=== PATIENT | female | born 1965 | race Caucasian/White ===

== ENCOUNTER 2016-10-08 11:26 | Emergency (ER) | payer OTHER ==
[~2016-10-08 11:26] MED LIST: PERC5TAB6 PO; biotin OR
--- NOTE | 2016-10-08 12:40 | REP ---
Clinical: Trauma. Technique: AP, lateral, bilateral oblique and sunrise views left knee. Findings: The osseous structures and joint spaces are intact and normal. There is no evidence for acute fracture or dislocation. No joint effusion is appreciated. Surrounding soft tissues are unremarkable. No subcutaneous emphysema or radiodense foreign body. Impression: Normal examination. No acute fracture or dislocation. Signed by Michael Ochoa MD 10/08/2016 12:31 P
--- NOTE | 2016-10-08 13:31 | REP ---
Clinical: Pain and swelling . Technique: Trujillo scale and color Doppler evaluation using linear high frequency transducer. Findings: Ultrasound examination of the left lower extremity deep venous structures from the common femoral vein to the popliteal vein demonstrates normal compressibility flow and wave patterns in response to respiration and augmentation. There is no evidence for deep venous thrombosis. 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 Impression: No evidence for deep venous thrombosis. Signed by Michael Ochoa MD 10/08/2016 01:23 P
--- NOTE | 2016-10-08 13:53 | EDDOCDS ---
Physician Documentation [facility] Name: Alisa Wilson Age: 51 yrs Sex: Female : 1965 Arrival Date: 10/08/2016 Time: 11:26 Bed PD Private MD: Amber Hoffman Disposition: 10/08/16 13:43 Discharged to Home/Self Care. Impression: Pain in left knee. - Condition is Stable. - Discharge Instructions: Knee Pain. - Medication Reconciliation, [facility] Followup form. - Follow up: Emergency Department; When: As needed; Reason: Worsening of conditions. Follow up: [facility]; When: Call to arrange an appointment; Reason: Wound/Symptom Recheck, Recheck today's complaints, Worsening of conditions, Continuance of care. - Problem is an ongoing problem. - Symptoms are unchanged. Historical: - Allergies: no known allergies; - Home Meds: 1. none - PMHx: none; - PSHx: Hysterectomy; Oophorectomy- bilateral; Salpingectomy- Bilateral; - Social history: Smoking status: Patient states was never smoker of tobacco. No barriers to communication noted, The patient speaks fluent Mongolian. - Family history: Not pertinent. - : The pt / caregiver states he / she is not on anticoagulants. Home medication list is obtained from the patient. - Exposure Risk Screening:: None identified. 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 1 in. (154.94 cm); Pain 6/10; 13:50 BP 145 / 85; Pulse 68; Resp 16; Temp 97.6(TE); Pulse Ox 97% on R/A; Pain 6/10; mlb1 11:29 Body Mass Index 33.82 (81.19 kg, 154.94 cm) sar1 MDM: 11:42 Knee, Complete Ordered. EDMS 12:34 US Lower Extremity R/O DVT: Bakers cyst too? Ordered. EDMS Signatures: Dispatcher [employer] EDMS Jose Hendricks RN RN po Jae Fraser RN RN mlb1 Zion Bianchi, PA-C PA-C cc10 MTDD
--- NOTE | 2016-10-08 13:53 | EDDOCDS ---
Nurse's Notes [facility] Name: Alisa Wilson Age: 51 yrs Sex: Female : 1965 Arrival Date: 10/08/2016 Time: 11:26 Bed PD Private MD: Amber Hoffman Diagnosis: Pain in left knee Presentation: 10/08 11:33 Presenting complaint: Patient states: intermittent in back of left knee x1 1/2 weeks. po Adult Sepsis Screening: The patient does not have new or worsening altered mentation. Patient's respiratory rate is less than 22. Systolic blood pressure is greater than 100. Patient has a qSOFA score of 0- Negative Sepsis Screen. Suicide/Homicide risk assessment- the patient denies having any suicidal and/or homicidal ideations and does not present with any other emotional, behavioral or mental health complaints. 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 Transition of care: patient was not received from another setting of care. 11:33 Acuity: TRAVIS Level 4 po 11:33 Method Of Arrival: Walkin/Carried/Asstd po Triage Assessment: 11:36 General: Appears in no apparent distress, comfortable, Behavior is appropriate for age, po cooperative. Pain: Location: posterior aspect of left knee and left calf Pain currently is 6 out of 10 on a pain scale. Is continuous. HIV screening NA for this visit Offered previously. Neurological: Level of Consciousness is awake, alert, Oriented to person, place, time. Respiratory: Airway is patent Respiratory effort is even, unlabored. Derm: Skin is pink, warm & dry. REIMBURSEMENT REP: 11:36 LMP N/A - Post-menopause po Historical: - Allergies: no known allergies; - Home Meds: 1. none - PMHx: none; - PSHx: Hysterectomy; Oophorectomy- bilateral; Salpingectomy- Bilateral; - Social history: Smoking status: Patient states was never smoker of tobacco. No barriers to communication noted, The patient speaks fluent Tamazight. - Family history: Not pertinent. - : The pt / caregiver states he / she is not on anticoagulants. Home medication list is obtained from the patient. - Exposure Risk Screening:: None identified. Screenin:51 Screening information is obtained from the patient. Fall risk: No risks identified. mlb1 Assistance ADL's: requires no assistance with activities of daily living. Abuse/DV Screen: The patient / caregiver reports he/she is: not in a situation that causes fear, pain or injury. Nutritional screening: No deficits noted. Advance Directives: Currently, there is no health care proxy. home support is adequate. Assessment: 13:50 General: Appears in no apparent distress, comfortable, Behavior is appropriate for age, mlb1 cooperative. Pain: Location: left knee Pain currently is 6 out of 10 on a pain scale. Respiratory: Airway is patent Respiratory effort is even, Breath sounds are clear bilaterally. Derm: No deficits noted. Vital Signs: 11:29 BP 167 / 95; Pulse 76; Resp 18; Temp 97.6(O); Pulse Ox 99% on R/A; Weight 81.19 kg (R); sar1 Height 5 ft. 1 in. (154.94 cm); Pain 6/10; 13:50 BP 145 / 85; Pulse 68; Resp 16; Temp 97.6(TE); Pulse Ox 97% on R/A; Pain 6/10; mlb1 11:29 Body Mass Index 33.82 (81.19 kg, 154.94 cm) [facility] [place] Vitals: 11:29 Log In Time: October 08, 2016 at 11:29. [facility] ED Course: 11:28 Patient visited by Sharmaine Brock, Beef Cattle Farmer. sar1 11:28 Amber Hoffman FNP is Private Physician. sar1 11:28 Patient moved to Waiting sar1 11:31 Patient moved to Pre RCE sar1 11:35 Triage Initiated po 11:36 Arm band placed on right wrist. Patient placed in waiting room. po 11:37 Patient visited by Jose Hendricks RN. po 12:22 Patient moved to Triage 3 ms18 12:24 Zion Bianchi PA-C [facility]. cc10 12:24 Tamara Alberto MD is Attending Physician. cc10 12:24 Patient visited by Zion Bianchi PA-C. cc10 12:24 Patient visited by Zion Bianchi PA-C. cc10 12:43 Knee, Complete Returned. EDMS 13:00 Patient moved to TR1 rn1 13:37 Lower Extremity R/O DVT: Bakers cyst too? Returned. EDMS 13:39 Patient moved to PD2 / mlb1 13:43 [facility] is Referral Physician. cc10 13:51 The patient / caregiver is instructed regarding the plan of care and ED course. mlb1 13:51 No IV's were initiated during this patient's visit. No procedures done that require mlb1 assistance. 13:52 Patient visited by Jae Fraser RN. mlb1 Order Results: Radiology Order: Knee, Complete Test: Knee, Complete REASON FOR EXAMINATION: Trauma; Clinical: Trauma.; ; Technique: AP, lateral, bilateral oblique and sunrise views left knee.; ; Findings: The osseous structures and joint spaces are intact and normal. There; is no evidence for acute fracture or dislocation. No joint effusion is; appreciated. Surrounding soft tissues are unremarkable. No subcutaneous; emphysema or radiodense foreign body.; ; Impression:; Normal examination. No acute fracture or dislocation.; ; ; Signed by; Michael Ochoa MD 10/08/2016 12:31 P; Radiology Order: US Lower Extremity R/O DVT: Bakers cyst too? Test: US Lower Extremity R/O DVT: Bakers cyst too? REASON FOR EXAMINATION: Deformity/Swelling; Clinical: Pain and swelling .; ; Technique: Trujillo scale and color Doppler evaluation using linear high frequency; transducer.; ; Findings:; Ultrasound examination of the left lower extremity deep venous structures from; the common femoral vein to the popliteal vein demonstrates normal compressibility; flow and wave patterns in response to respiration and augmentation. There is no; evidence for deep venous thrombosis. 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 cc10 13:51 Discharge Assessment: Patient awake, alert and oriented x 3. No cognitive and/or mlb1 functional deficits noted. Patient verbalized understanding of disposition instructions. patient administered narcotics - no. The following High Risk Discharge criteria are identified: None. Discharged to home ambulatory. 13:52 Condition: good. Discharge instructions given to patient, Instructed on discharge mlb1 instructions, follow up and referral plans. Demonstrated understanding of instructions, Pt was receptive of discharge instructions/ teaching. Ultrasound Study completed. Property sent home with patient. 13:52 Patient left the ED. mlb1 Signatures: Dispatcher [employer] Jose Buenrostro,RN RN po Evelio, Jae Mendoza RN RN mlb1 Zion Bianchi, PADylanC PA-C cc10 Andreea Bell RN RN ms18 Sharmaine Brock, Beef Cattle Farmer Unit sar1 Antoine Rojas rn1 MTDD
--- NOTE | 2016-10-10 14:53 | EDDOCDS ---
Physician Documentation [facility] Name: Alisa Wilson Age: 51 yrs Sex: Female : 1965 Arrival Date: 10/08/2016 Time: 11:26 Bed PD Private MD: Amber Hoffman Disposition: 10/08/16 13:43 Discharged to Home/Self Care. Impression: Pain in left knee. - Condition is Stable. - Discharge Instructions: Knee Pain. - Medication Reconciliation, [facility] Followup form. - Follow up: Emergency Department; When: As needed; Reason: Worsening of conditions. Follow up: [facility]; When: Call to arrange an appointment; Reason: Wound/Symptom Recheck, Recheck today's complaints, Worsening of conditions, Continuance of care. - Problem is an ongoing problem. - Symptoms are unchanged. Historical: - Allergies: no known allergies; - Home Meds: 1. none - PMHx: none; - PSHx: Hysterectomy; Oophorectomy- bilateral; Salpingectomy- Bilateral; - Social history: Smoking status: Patient states was never smoker of tobacco. No barriers to communication noted, The patient speaks fluent Czech. - Family history: Not pertinent. - : The pt / caregiver states he / she is not on anticoagulants. Home medication list is obtained from the patient. - Exposure Risk Screening:: None identified. 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 1 in. (154.94 cm); Pain 6/10; 13:50 BP 145 / 85; Pulse 68; Resp 16; Temp 97.6(TE); Pulse Ox 97% on R/A; Pain 6/10; mlb1 11:29 Body Mass Index 33.82 (81.19 kg, 154.94 cm) sar1 MDM: 11:42 Knee, Complete Ordered. EDMS 12:34 US Lower Extremity R/O DVT: Bakers cyst too? Ordered. EDMS 15:10 [facility] Payment Agreement was scanned into [employer] and attached to record. jp5 15:10 Financial registration complete. jp5 16:59 T-Sheet-- Draft Copy was scanned into [employer] and attached to record. klr Signatures: Dispatcher [employer] Jose Buenrostro RN RN po Barney, Michael B, RN RN mlb1 Zion Bianchi PA-C PADylanC cc10 Tatiana Rdz jp5 Sheila Key klr The chart was reviewed and I authenticate all verbal orders and agree with the evaluation and treatment provided.Attachments: 15:10 [facility] Payment Agreement jp5 16:59 T-Sheet-- Draft Copy klr Chart Complete MTDD
--- NOTE | 2016-10-10 14:53 | EDDOCDS ---
Nurse's Notes [facility] Name: Alisa Wilson Age: 51 yrs Sex: Female : 1965 Arrival Date: 10/08/2016 Time: 11:26 Bed PD Private MD: Amber Hoffman Diagnosis: Pain in left knee Presentation: 10/08 11:33 Presenting complaint: Patient states: intermittent in back of left knee x1 1/2 weeks. po Adult Sepsis Screening: The patient does not have new or worsening altered mentation. Patient's respiratory rate is less than 22. Systolic blood pressure is greater than 100. Patient has a qSOFA score of 0- Negative Sepsis Screen. Suicide/Homicide risk assessment- the patient denies having any suicidal and/or homicidal ideations and does not present with any other emotional, behavioral or mental health complaints. Status: Patient is not a career services director or dependent. Transition of care: patient was not received from another setting of care. 11:33 Acuity: TRAVIS Level 4 po 11:33 Method Of Arrival: Walkin/Carried/Asstd po Triage Assessment: 11:36 General: Appears in no apparent distress, comfortable, Behavior is appropriate for age, po cooperative. Pain: Location: posterior aspect of left knee and left calf Pain currently is 6 out of 10 on a pain scale. Is continuous. HIV screening NA for this visit Offered previously. Neurological: Level of Consciousness is awake, alert, Oriented to person, place, time. Respiratory: Airway is patent Respiratory effort is even, unlabored. Derm: Skin is pink, warm & dry. 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 none - PMHx: none; - PSHx: Hysterectomy; Oophorectomy- bilateral; Salpingectomy- Bilateral; - Social history: Smoking status: Patient states was never smoker of tobacco. No barriers to communication noted, The patient speaks fluent French. - Family history: Not pertinent. - : The pt / caregiver states he / she is not on anticoagulants. Home medication list is obtained from the patient. - Exposure Risk Screening:: None identified. Screenin:51 Screening information is obtained from the patient. Fall risk: No risks identified. mlb1 Assistance ADL's: requires no assistance with activities of daily living. Abuse/DV Screen: The patient / caregiver reports he/she is: not in a situation that causes fear, pain or injury. Nutritional screening: No deficits noted. Advance Directives: Currently, there is no health care proxy. home support is adequate. Assessment: 13:50 General: Appears in no apparent distress, comfortable, Behavior is appropriate for age, mlb1 cooperative. Pain: Location: left knee Pain currently is 6 out of 10 on a pain scale. Respiratory: Airway is patent Respiratory effort is even, Breath sounds are clear bilaterally. Derm: No deficits noted. Vital Signs: 11:29 BP 167 / 95; Pulse 76; Resp 18; Temp 97.6(O); Pulse Ox 99% on R/A; Weight 81.19 kg (R); sar1 Height 5 ft. 1 in. (154.94 cm); Pain 6/10; 13:50 BP 145 / 85; Pulse 68; Resp 16; Temp 97.6(TE); Pulse Ox 97% on R/A; Pain 6/10; mlb1 11:29 Body Mass Index 33.82 (81.19 kg, 154.94 cm) [facility] Vitals: 11:29 Log In Time: October 08, 2016 at 11:29. [facility] ED Course: 11:28 Patient visited by Sharmaine Brock, Quarry Supervisor Open Pit. sar1 11:28 Amber Hoffman FNP is Private Physician. sar1 11:28 Patient moved to Waiting sar1 11:31 Patient moved to Pre RCE sar1 11:35 Triage Initiated po 11:36 Arm band placed on right wrist. Patient placed in waiting room. po 11:37 Patient visited by Jose Hendricks RN. po 12:22 Patient moved to Triage 3 ms18 12:24 Zion Bianchi PA-C [facility]. cc10 12:24 Tamara Alberto MD is Attending Physician. cc10 12:24 Patient visited by Zion Bianchi PA-C. cc10 12:24 Patient visited by Zion Bianchi PA-C. cc10 12:43 Knee, Complete Returned. EDMS 13:00 Patient moved to TR1 rn1 13:37 Lower Extremity R/O DVT: Bakers cyst too? Returned. EDMS 13:39 Patient moved to PD2 / mlb1 13:43 [facility] is Referral Physician. cc10 13:51 The patient / caregiver is instructed regarding the plan of care and ED course. mlb1 13:51 No IV's were initiated during this patient's visit. No procedures done that require mlb1 assistance. 13:52 Patient visited by Jae Fraser RN. mlb1 15:10 [facility] Payment Agreement was scanned into [email or web address] and attached to record. jp5 16:59 T-Sheet-- Draft Copy was scanned into [email or web address] and attached to record. klr Order Results: Radiology Order: Knee, Complete Test: Knee, Complete REASON FOR EXAMINATION: Trauma; Clinical: Trauma.; ; Technique: AP, lateral, bilateral oblique and sunrise views left knee.; ; Findings: The osseous structures and joint spaces are intact and normal. There; is no evidence for acute fracture or dislocation. No joint effusion is; appreciated. Surrounding soft tissues are unremarkable. No subcutaneous; emphysema or radiodense foreign body.; ; Impression:; Normal examination. No acute fracture or dislocation.; ; ; Signed by; Michael Ochoa MD 10/08/2016 12:31 P; Radiology Order: US Lower Extremity R/O DVT: Bakers cyst too? Test: US Lower Extremity R/O DVT: Bakers cyst too? REASON FOR EXAMINATION: Deformity/Swelling; Clinical: Pain and swelling .; ; Technique: Trujillo scale and color Doppler evaluation using linear high frequency; transducer.; ; Findings:; Ultrasound examination of the left lower extremity deep venous structures from; the common femoral vein to the popliteal vein demonstrates normal compressibility; flow and wave patterns in response to respiration and augmentation. There is no; evidence for deep venous thrombosis. 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 cc10 13:51 Discharge Assessment: Patient awake, alert and oriented x 3. No cognitive and/or mlb1 functional deficits noted. Patient verbalized understanding of disposition instructions. patient administered narcotics - no. The following High Risk Discharge criteria are identified: None. Discharged to home ambulatory. 13:52 Condition: good. Discharge instructions given to patient, Instructed on discharge mlb1 instructions, follow up and referral plans. Demonstrated understanding of instructions, Pt was receptive of discharge instructions/ teaching. Ultrasound Study completed. Property sent home with patient. 13:52 Patient left the ED. mlb1 Signatures: Dispatcher [employer] EDMS Jose Hendricks,RN RN Jae Lozano RN RN mlb1 Zion Bianchi, PA-C PAJovan cc10 Andreea Bell RN RN ms18 Sharmaine Brock, Quarry Supervisor Open Pit Unit sar1 Antoine Rojas rn1 Tatiana Rdz jp5 Sheila Key Chart Complete MTDD
--- NOTE | 2016-10-10 14:53 | EDDOCDS ---
Physician Documentation [facility] Name: Alisa Wilson Age: 51 yrs Sex: Female : 1965 Arrival Date: 10/08/2016 Time: 11:26 Bed PD Private MD: Amber Hoffman Disposition: 10/08/16 13:43 Discharged to Home/Self Care. Impression: Pain in left knee. - Condition is Stable. - Discharge Instructions: Knee Pain. - Medication Reconciliation, [facility] Followup form. - Follow up: Emergency Department; When: As needed; Reason: Worsening of conditions. Follow up: [facility]; When: Call to arrange an appointment; Reason: Wound/Symptom Recheck, Recheck today's complaints, Worsening of conditions, Continuance of care. - Problem is an ongoing problem. - Symptoms are unchanged. Historical: - Allergies: no known allergies; - Home Meds: 1. none - PMHx: none; - PSHx: Hysterectomy; Oophorectomy- bilateral; Salpingectomy- Bilateral; - Social history: Smoking status: Patient states was never smoker of tobacco. No barriers to communication noted, The patient speaks fluent Yoruba. - Family history: Not pertinent. - : The pt / caregiver states he / she is not on anticoagulants. Home medication list is obtained from the patient. - Exposure Risk Screening:: None identified. 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 1 in. (154.94 cm); Pain 6/10; 13:50 BP 145 / 85; Pulse 68; Resp 16; Temp 97.6(TE); Pulse Ox 97% on R/A; Pain 6/10; mlb1 11:29 Body Mass Index 33.82 (81.19 kg, 154.94 cm) sar1 MDM: 11:42 Knee, Complete Ordered. EDMS 12:34 US Lower Extremity R/O DVT: Bakers cyst too? Ordered. EDMS 15:10 [facility] Payment Agreement was scanned into [employer] and attached to record. jp5 15:10 Financial registration complete. jp5 16:59 T-Sheet-- Draft Copy was scanned into [employer] and attached to record. klr Signatures: Dispatcher [employer] Jose Buenrostro RN RN po Barney, Michael B, RN RN mlb1 Zion Bianchi PA-C PADylanC cc10 Tatiana Rdz jp5 Sheila Key klr The chart was reviewed and I authenticate all verbal orders and agree with the evaluation and treatment provided.Attachments: 15:10 [facility] Payment Agreement jp5 16:59 T-Sheet-- Draft Copy klr Chart Complete MTDD
== END 2016-10-08 13:52 | disposition home or self-care (01) ==
LOC: M ED 11:26
DX: M25.562 Pain in left knee (principal)

== ENCOUNTER → 2017-04-23 | Outpatient (REF) | payer OTHER ==
[~2017-04-23] MED LIST changes: +PERC5TAB12 PO; -PERC5TAB6 PO
[2017-04-23 12:14] LABS: ALBUMIN/GLOBULIN RATIO 1.03 (1.00-1.93); ALKALINE PHOSPHATASE 60 U/L (45-117); ALT/SGPT 44 U/L (12-78); ANION GAP 6 MEQ/L (8-16); AST/SGOT 32 U/L (15-37); BILIRUBIN,TOTAL 0.3 MG/DL (0.2-1.0); BLOOD UREA NITROGEN 8 MG/DL (7-18); CALCIUM LEVEL 9.4 MG/DL (8.5-10.1); CARBON DIOXIDE LEVEL 27 MEQ/L (21-32); CHLORIDE LEVEL 108 MEQ/L (98-107); CHOLESTEROL LEVEL 287 MG/DL (<200); CREATININE FOR GFR 0.66 MG/DL (0.55-1.02); GLOMERULAR FILTRATION RATE > 60.0 (>51); GLUCOSE, FASTING 90 MG/DL (70-105); SODIUM LEVEL 141 MEQ/L (136-145); TOTAL PROTEIN 7.9 GM/DL (6.4-8.2); TRIGLYCERIDES LEVEL 377 MG/DL (<150)
== END ==
LOC: M SFHCPLAZ 10:03
PROVIDERS: ATTEND Nurse Practitioner Family
DX: E78.2 Mixed hyperlipidemia (principal); E55.9 Vitamin D deficiency, unspecified

== ENCOUNTER → 2017-07-16 | Outpatient (REF) | payer OTHER ==
[2017-07-16 12:37] LABS: MEAN CORPUSCULAR HEMOGLOBIN 27.4 pg (27.0-33.0); MEAN CORPUSCULAR HGB CONC 31.8 g/dl (32.0-36.5); MEAN CORPUSCULAR VOLUME 86.2 fl (80.0-96.0); RED CELL DISTRIBUTION WIDTH 13.9 % (11.5-14.5); WHITE BLOOD COUNT 7.8 10^3/uL (4.0-10.0)
[2017-07-16 12:56] LABS: ALBUMIN 3.9 GM/DL (3.2-5.2); ALBUMIN/GLOBULIN RATIO 1.05 (1.00-1.93); ALKALINE PHOSPHATASE 59 U/L (45-117); ALT/SGPT 44 U/L (12-78); ANION GAP 9 MEQ/L (8-16); AST/SGOT 29 U/L (15-37); BILIRUBIN,TOTAL 0.3 MG/DL (0.2-1.0); BLOOD UREA NITROGEN 15 MG/DL (7-18); CARBON DIOXIDE LEVEL 27 MEQ/L (21-32); CHLORIDE LEVEL 102 MEQ/L (98-107); CREATININE FOR GFR 0.63 MG/DL (0.55-1.02); FERRITIN 37 NG/ML (8-252); GLOMERULAR FILTRATION RATE > 60.0 (>51); GLUCOSE, FASTING 84 MG/DL (70-105); POTASSIUM SERUM 4.5 MEQ/L (3.5-5.1); SODIUM LEVEL 138 MEQ/L (136-145); TOTAL PROTEIN 7.6 GM/DL (6.4-8.2)
== END ==
LOC: M SFHCPLAZ 10:13
PROVIDERS: ATTEND Nurse Practitioner Family
DX: E55.9 Vitamin D deficiency, unspecified (principal); D50.9 Iron deficiency anemia, unspecified; E78.2 Mixed hyperlipidemia; Z13.89 Encounter for screening for other disorder

== ENCOUNTER → 2017-09-05 | Outpatient (REF) | payer OTHER | LOC: M LAB REF 12:10 → M SFHCPLAZ 12:10 → M LAB REF 09-06 12:09 | PROVIDERS: ATTEND Nurse Practitioner Family | DX: J02.9 Acute pharyngitis, unspecified (principal); R35.0 Frequency of micturition ==

== ENCOUNTER → 2017-09-06 | Outpatient (REF) | payer OTHER ==
[2017-09-06 16:17] LABS: BASO # 0.1 10^3/uL (0.0-0.2); BASO % 0.7 % (0.0-1.0); EOS # 0.2 10^3/uL (0.0-0.50); EOS % 2.4 % (0.0-3.0); IMMATURE GRANULOCYTE % 0.3 % (0-0); LYMPH # 2.1 10^3/uL (1.5-4.5); LYMPH % 28.4 % (24.0-44.0); MEAN CORPUSCULAR HEMOGLOBIN 27.4 pg (27.0-33.0); MEAN CORPUSCULAR HGB CONC 32.5 g/dl (32.0-36.5); MEAN CORPUSCULAR VOLUME 84.5 fl (80.0-96.0); MONO # 0.7 10^3/uL (0.0-0.8); MONO % 8.8 % (0.0-5.0); NEUTROPHILS # 4.4 10^3/uL (1.8-7.7); NEUTROPHILS % 59.4 % (36.0-66.0); PLATELET COUNT, AUTOMATED 383 10^3/uL (150-450); RED CELL DISTRIBUTION WIDTH 13.5 % (11.5-14.5); WHITE BLOOD COUNT 7.5 10^3/uL (4.0-10.0)
[2017-09-06 16:48] LABS: ALBUMIN 3.9 GM/DL (3.2-5.2); ALBUMIN/GLOBULIN RATIO 1.11 (1.00-1.93); ALKALINE PHOSPHATASE 69 U/L (45-117); ALT/SGPT 25 U/L (12-78); AMYLASE 60 U/L (25-115); ANION GAP 6 MEQ/L (8-16); AST/SGOT 20 U/L (7-37); BILIRUBIN,TOTAL 0.3 MG/DL (0.2-1.0); BLOOD UREA NITROGEN 11 MG/DL (7-18); CALCIUM LEVEL 8.9 MG/DL (8.5-10.1); CARBON DIOXIDE LEVEL 28 MEQ/L (21-32); CHLORIDE LEVEL 108 MEQ/L (98-107); CREATININE FOR GFR 0.68 MG/DL (0.55-1.02); FREE T4 0.88 NG/DL (0.76-1.46); GLOMERULAR FILTRATION RATE > 60.0 (>51); GLUCOSE, FASTING 89 MG/DL (70-105); POTASSIUM SERUM 4.5 MEQ/L (3.5-5.1); SODIUM LEVEL 142 MEQ/L (136-145); TOTAL PROTEIN 7.4 GM/DL (6.4-8.2)
== END ==
LOC: M LABDRAW1 11:11
PROVIDERS: ATTEND Nurse Practitioner Family
DX: J02.9 Acute pharyngitis, unspecified (principal); R10.11 Right upper quadrant pain; R03.0 Elevated blood-pressure reading, without diagnosis of hypertension

== ENCOUNTER → 2017-09-10 | Outpatient (CLI) | payer OTHER ==
--- NOTE | 2017-09-11 07:44 | REP ---
RENAL ULTRASOUND: CLINICAL: History of nephrolithiasis. TECHNIQUE: Real-time beckford scale ultrasound examination using curved array transducer. FINDINGS: Ultrasound examination demonstrates the bilateral kidneys to be normal in contour, size, echogenicity and reniform shape without hydronephrosis, nephrolithiasis, cystic or renal mass lesion. Right kidney measures 11.3 x 5.7 x 4.1 cm. Left kidney measures 13.2 x 6.1 x 5.8 cm. The bladder is unremarkable and demonstrates bilateral ureteral jets. Pre-void bladder measures 5.2 x 5.9 x 3.8 cm (72 mL). Post void bladder measures 2.5 x 2.8 x 2.0 cm (9 mL). IMPRESSION: Normal renal ultrasound.
== END ==
LOC: M WHC 08:20
PROVIDERS: ATTEND Nurse Practitioner Family
DX: R10.11 Right upper quadrant pain (principal); Z87.442 Personal history of urinary calculi

== ENCOUNTER → 2017-09-12 | Outpatient (CLI) | payer OTHER ==
--- NOTE | 2017-09-13 06:18 | REP ---
CHEST X-RAY: CLINICAL: Dyspnea and upper respiratory tract symptoms. TECHNIQUE: PA and lateral. COMPARISON: 05/19/2015. FINDINGS: Mediastinum and cardiac silhouette are normal. The lung salgado demonstrate coarsened markings which may reflect bronchitis. No focal consolidation, effusion, or pneumothorax. Skeletal structures are intact. IMPRESSION: Increased coarsened markings may reflect bronchitis. No focal consolidation. Signed by Michael Ochoa MD 09/14/2017 08:36 A
== END ==
LOC: M SMT 08:49
PROVIDERS: ATTEND Nurse Practitioner Family
DX: J06.9 Acute upper respiratory infection, unspecified (principal); I10 Essential (primary) hypertension

== ENCOUNTER → 2017-11-03 | Outpatient (REF) | payer OTHER | LOC: M LAB REF 14:30 | DX: R30.0 Dysuria (principal) ==

== ENCOUNTER → 2017-11-10 | Outpatient (CLI) | payer OTHER ==
[2017-11-10 11:38] LABS: ESTIMATED AVERAGE GLUCOSE 128 MG/DL (60-110); HEMOGLOBIN A1c 6.1 %
[2017-11-10 11:48] LABS: ALBUMIN 4.2 GM/DL (3.2-5.2); ALBUMIN/GLOBULIN RATIO 1.02 (1.00-1.93); ALKALINE PHOSPHATASE 66 U/L (45-117); ALT/SGPT 35 U/L (12-78); ANION GAP 6 MEQ/L (8-16); AST/SGOT 26 U/L (7-37); BILIRUBIN,TOTAL 0.4 MG/DL (0.2-1.0); BLOOD UREA NITROGEN 12 MG/DL (7-18); CALCIUM LEVEL 9.5 MG/DL (8.5-10.1); CARBON DIOXIDE LEVEL 29 MEQ/L (21-32); CHLORIDE LEVEL 105 MEQ/L (98-107); CHOLESTEROL LEVEL 249 MG/DL (<200); CHOLESTEROL RISK RATIO 4.016 (<5); CREATININE FOR GFR 0.68 MG/DL (0.55-1.30); GLOMERULAR FILTRATION RATE > 60.0 (>51); GLUCOSE, FASTING 92 MG/DL (70-100); HDL CHOLESTEROL 62 MG/DL (>40); MAGNESIUM LEVEL 2.2 MG/DL (1.8-2.4); NON-HDL-C 187 MG/DL; POTASSIUM SERUM 4.5 MEQ/L (3.5-5.1); SODIUM LEVEL 140 MEQ/L (136-145); TOTAL PROTEIN 8.3 GM/DL (6.4-8.2); TRIGLYCERIDES LEVEL 125 MG/DL (<150)
[2017-11-12 09:16] LABS: TOTAL 25(OH) VITAMIN D 32.7 NG/ML (30.0-100.0)
== END ==
LOC: M LAB 10:05
DX: I10 Essential (primary) hypertension (principal); E88.81 Metabolic syndrome and other insulin resistance; E78.2 Mixed hyperlipidemia; E55.9 Vitamin D deficiency, unspecified; R10.13 Epigastric pain
CPT/HCPCS: 83735

== ENCOUNTER → 2018-05-20 | Outpatient (REF) | payer OTHER, MEDICAID ==
[2018-05-20 13:59] LABS: ALKALINE PHOSPHATASE 62 U/L (45-117); ALT/SGPT 59 U/L (12-78); ANION GAP 10 MEQ/L (8-16); AST/SGOT 36 U/L (7-37); BILIRUBIN,TOTAL 0.3 MG/DL (0.2-1.0); BLOOD UREA NITROGEN 11 MG/DL (7-18); CALCIUM LEVEL 9.2 MG/DL (8.5-10.1); CARBON DIOXIDE LEVEL 26 MEQ/L (21-32); CHLORIDE LEVEL 107 MEQ/L (98-107); CHOLESTEROL LEVEL 341 MG/DL (<200); CHOLESTEROL RISK RATIO 7.577 (<5); CREATININE FOR GFR 0.79 MG/DL (0.55-1.30); FREE T4 0.84 NG/DL (0.76-1.46); GLOMERULAR FILTRATION RATE > 60.0 (>51); GLUCOSE, FASTING 97 MG/DL (70-100); HDL CHOLESTEROL 45 MG/DL (>40); LDL CHOLESTEROL 216.6 MG/DL (<100); NON-HDL-C 296 MG/DL; POTASSIUM SERUM 3.9 MEQ/L (3.5-5.1); SODIUM LEVEL 143 MEQ/L (136-145); TRIGLYCERIDES LEVEL 397 MG/DL (<150)
[2018-05-20 16:27] LABS: ESTIMATED AVERAGE GLUCOSE 120 MG/DL (60-110); HEMOGLOBIN A1c 5.8 %
== END ==
LOC: M LABDRAW1 09:43
DX: I10 Essential (primary) hypertension (principal); E78.2 Mixed hyperlipidemia; R73.03 Prediabetes

== ENCOUNTER → 2018-08-16 | Outpatient (REF) | payer MEDICAID, SELFPAY ==
[2018-08-16 12:58] LABS: ALBUMIN 4.1 GM/DL (3.2-5.2); ALBUMIN/GLOBULIN RATIO 1.21 (1.00-1.93); ALKALINE PHOSPHATASE 59 U/L (45-117); ALT/SGPT 48 U/L (12-78); ANION GAP 7 MEQ/L (8-16); AST/SGOT 39 U/L (7-37); BILIRUBIN,TOTAL 0.4 MG/DL (0.2-1.0); BLOOD UREA NITROGEN 16 MG/DL (7-18); CALCIUM LEVEL 9.6 MG/DL (8.5-10.1); CARBON DIOXIDE LEVEL 27 MEQ/L (21-32); CHLORIDE LEVEL 106 MEQ/L (98-107); CHOLESTEROL LEVEL 209 MG/DL (<200); CHOLESTEROL RISK RATIO 3.943 (<5); CREATININE FOR GFR 0.67 MG/DL (0.55-1.30); GLOMERULAR FILTRATION RATE > 60.0 (>51); GLUCOSE, FASTING 96 MG/DL (70-100); HDL CHOLESTEROL 53 MG/DL (>40); LDL CHOLESTEROL 118 MG/DL (<100); NON-HDL-C 156 MG/DL; POTASSIUM SERUM 4.2 MEQ/L (3.5-5.1); SODIUM LEVEL 140 MEQ/L (136-145); TOTAL PROTEIN 7.5 GM/DL (6.4-8.2); TRIGLYCERIDES LEVEL 191 MG/DL (<150)
[2018-08-16 14:23] LABS: TOTAL 25(OH) VITAMIN D 43.7 NG/ML (30.0-100.0)
[2018-08-16 15:20] LABS: ESTIMATED AVERAGE GLUCOSE 128 MG/DL (60-110); HEMOGLOBIN A1c 6.1 %
== END ==
LOC: M LABDRAW1 12:24
DX: E78.2 Mixed hyperlipidemia (principal); R73.03 Prediabetes; E55.9 Vitamin D deficiency, unspecified
CPT/HCPCS: 80053

== ENCOUNTER 2018-09-23 10:21 | Day surgery (SDC) | payer OTHER ==
[~2018-09-23] VITALS: Ht 154.9 cm; Wt 83.7 kg
[~2018-09-23 10:21] MED LIST changes: +BIOT50004 PO; +LISI-542 PO; +NS 1,000 ML IV ONE; +PRAV40TA2 PO; +VITA100067 PO
[2018-09-23] MEDS ORDERED: PROPOFOL 200 MG/20 ML VIAL As Ordered ONE ×2 (11:23→12:31)
[2018-09-23] MEDS ORDERED: LIDOCAINE 2% INJ 100 MG/5 ML SDV (FOR ANES.) As Ordered ONE (11:23)
[2018-09-23] MEDS ORDERED: fentaNYL 100 MCG/2 ML INJECTION (J3010) As Ordered ONE (11:23)
--- NOTE | 2018-09-23 12:11 | ROOR ---
Patient Name: Alisa Wilson Procedure Date: 09/23/2018 11:48 AM Date of : 1965 Age: 53 Room: [facility] Gender: Female Note Status: Finalized Procedure: Upper GI endoscopy Indications: Dyspepsia, Abdominal bloating Providers: Pool MONCADA MD Referring MD: Amber Hoffman NP Requesting Provider: Medicines: Monitored Anesthesia Care Complications: No immediate complications. Procedure: Pre-Anesthesia Assessment: - The heart rate, respiratory rate, oxygen saturations, blood pressure, adequacy of pulmonary ventilation, and response to care were monitored throughout the procedure. The Endoscope was introduced through the mouth, and advanced to the second part of duodenum. The upper GI endoscopy was accomplished without difficulty. The patient tolerated the procedure well. Findings: The examined esophagus was normal. Mild gastritis, mucosal atrophy. This was biopsied with a cold forceps for histology. The examined duodenum was normal. Biopsies were taken with a cold forceps in the gastric antrum for Helicobacter pylori testing. Impression: - Normal esophagus. - Mild gastritis. Biopsies were taken with a cold forceps for Helicobacter pylori testing. - Normal examined duodenum. Recommendation: - Telephone endoscopist for pathology results in 2 weeks. - Use Prilosec (omeprazole) 20 mg PO daily for 3 months. - (the script was sent to your pharmacy on file) Pool Moncada MD Pool MONCADA MD 09/23/2018 12:11:05 PM This report has been signed electronically. Number of Addenda: 0 Note Initiated On: 09/23/2018 11:48 AM Estimated Blood Loss: Estimated blood loss: none.
--- NOTE | 2018-09-23 12:44 | ROOR ---
Patient Name: Alisa Wilson Procedure Date: 09/23/2018 11:48 AM Date of : 1965 Age: 53 Room: [facility] Gender: Female Note Status: Finalized Procedure: Colonoscopy Indications: Screening for colorectal malignant neoplasm Providers: Pool MONCADA MD Referring MD: Amber Hoffman NP Requesting Provider: Medicines: Monitored Anesthesia Care Complications: No immediate complications. Procedure: Pre-Anesthesia Assessment: - The heart rate, respiratory rate, oxygen saturations, blood pressure, adequacy of pulmonary ventilation, and response to care were monitored throughout the procedure. The Colonoscope was introduced through the anus and advanced to the cecum, identified by appendiceal orifice and ileocecal valve. The colonoscopy was performed without difficulty. The patient tolerated the procedure well. The quality of the bowel preparation was good. Findings: The perianal and digital rectal examinations were normal. Four flat polyps were found in the hepatic flexure, ascending colon and ileocecal valve. The polyps were 5 to 10 mm in size. These polyps were removed with a piecemeal technique using a cold snare. Resection and retrieval were complete. Small Internal Hemorrhoids. The exam was otherwise without abnormality on direct and retroflexion views. Impression: - Four 5 to 10 mm polyps at the hepatic flexure, in the ascending colon and at the ileocecal valve, removed piecemeal using a cold snare. Resected and retrieved. - Small Internal Hemorrhoids. - The examination was otherwise normal on direct and retroflexion views. Recommendation: - If the pathology report reveals adenomatous tissue, then repeat the colonoscopy for surveillance after piecemeal polypectomy in 1 year. - Telephone endoscopist for pathology results in 2 weeks. Pool Moncada MD Pool MONCADA MD 09/23/2018 12:44:28 PM This report has been signed electronically. Number of Addenda: 0 Note Initiated On: 09/23/2018 11:48 AM Estimated Blood Loss: Estimated blood loss: none.
[2018-09-23 13:05] VITALS: BP 142/88
== END 2018-09-23 13:14 | disposition home or self-care (01) ==
LOC: M OPP 10:21
PROVIDERS: ATTEND Internal Medicine Gastroenterology
DX: D12.2 Benign neoplasm of ascending colon (principal); D12.0 Benign neoplasm of cecum; D12.3 Benign neoplasm of transverse colon; K64.8 Other hemorrhoids; R13.10 Dysphagia, unspecified; R14.0 Abdominal distension (gaseous); K29.70 Gastritis, unspecified, without bleeding
CPT/HCPCS: 43239; 45385; 88305; 88313; J3010

== ENCOUNTER 2018-11-15 13:32 | Emergency (ER) | payer OTHER ==
[~2018-11-15] VITALS: Ht 154.9 cm; Wt 79.5 kg
[~2018-11-15 13:32] MED LIST changes: -NS 1,000 ML IV ONE
[2018-11-15] MEDS ORDERED: ACETAMINOPHEN 325 MG TAB PO ONE (14:15)
--- NOTE | 2018-11-15 14:31 | REP ---
CT Head without contrast HISTORY: Injury COMPARISON: 04/12/2009 There is no intraparenchymal hemorrhage, acute infarct, mass or midline shift. The ventricular system is normal in appearance. There is no extra cerebral collection. There is no fracture. There is minimal deformity of the right parietal bone that may be secondary to remote trauma. The visualized sinuses are clear. IMPRESSION: There is no intracranial lesion. Electronically Signed by Bakari Mary MD 11/15/2018 02:23 P
--- NOTE | 2018-11-15 14:36 | REP ---
CT cervical spine without contrast HISTORY: Injury COMPARISON: None There is no acute fracture or subluxation. A disc bulge is present at the C4-5 level. Disc bulges with associated osteophyte formation are present at the C5-6 and C6-7 levels. There is minimal narrowing of the spinal canal. Uncinate process hypertrophy is present on the right at the C6-7 level. This produces minimal narrowing of the right C6 neural foramen. The left C6 and remaining neural foramina are patent. The C5-6 intervertebral disc is decreased in height consistent with disc degeneration. IMPRESSION: 1. There is no acute fracture or subluxation. 2. There is cervical spondylosis at the C4-5 through C6-7 levels. Electronically Signed by Bakari Mary MD 11/15/2018 02:28 P
[2018-11-15 14:46] VITALS: BP 137/77
== END 2018-11-15 14:53 | disposition home or self-care (01) ==
LOC: M ED 13:32
DX: S06.0X9A Concussion with loss of consciousness of unspecified duration, initial encounter (principal); X58.XXXA Exposure to other specified factors, initial encounter; Y92.89 Other specified places as the place of occurrence of the external cause; Y93.9 Activity, unspecified; Y99.9 Unspecified external cause status; M47.812 Spondylosis without myelopathy or radiculopathy, cervical region; I10 Essential (primary) hypertension; Z79.899 Other long term (current) drug therapy

== ENCOUNTER 2018-11-20 12:14 | Emergency (ER) | payer OTHER ==
[~2018-11-20] VITALS: Ht 154.9 cm; Wt 79.5 kg
[2018-11-20 13:17] LABS: BASO # 0.1 10^3/uL (0.0-0.2); BASO % 0.7 % (0.0-1.0); EOS # 0.1 10^3/uL (0.0-0.50); HEMATOCRIT 43.2 % (36.0-47.0); HEMOGLOBIN 13.9 g/dl (12.0-15.5); LYMPH # 2.1 10^3/uL (1.5-4.5); LYMPH % 25.5 % (24.0-44.0); MEAN CORPUSCULAR HEMOGLOBIN 26.9 pg (27.0-33.0); MEAN CORPUSCULAR HGB CONC 32.2 g/dl (32.0-36.5); MEAN CORPUSCULAR VOLUME 83.6 fl (80.0-96.0); MONO # 0.7 10^3/uL (0.0-0.8); MONO % 8.5 % (0.0-5.0); NEUTROPHILS # 5.4 10^3/uL (1.8-7.7); NEUTROPHILS % 64.1 % (36.0-66.0); PLATELET COUNT, AUTOMATED 358 10^3/uL (150-450); RED BLOOD COUNT 5.17 10^6/uL (4.00-5.40); WHITE BLOOD COUNT 8.4 10^3/uL (4.0-10.0)
[2018-11-20 13:49] LABS: ALBUMIN 4.2 GM/DL (3.2-5.2); ALT/SGPT 48 U/L (12-78); BILIRUBIN,DIRECT < 0.1 MG/DL (0.0-0.2); BILIRUBIN,TOTAL 0.3 MG/DL (0.2-1.0); BLOOD UREA NITROGEN 14 MG/DL (7-18); CALCIUM LEVEL 9.3 MG/DL (8.5-10.1); CARBON DIOXIDE LEVEL 20 MEQ/L (21-32); CHLORIDE LEVEL 107 MEQ/L (98-107); CPK CREATINE PHOSPHOKINASE 200 U/L (26-192); CREATININE FOR GFR 0.73 MG/DL (0.55-1.30); GLOMERULAR FILTRATION RATE > 60.0 (>51); GLUCOSE, FASTING 104 MG/DL (70-100); LIPASE 250 U/L (73-393); POTASSIUM SERUM 4.6 MEQ/L (3.5-5.1); SODIUM LEVEL 139 MEQ/L (136-145); TOTAL PROTEIN 8.1 GM/DL (6.4-8.2); TROPONIN I < 0.02 NG/ML (< 0.10)
[2018-11-20 14:42] VITALS: BP 163/79
--- NOTE | 2018-11-20 17:19 | ECGEPIP ---
Stationary ECG Study [facility] - ED Test Date: 2018-11-20 Pat Name: ORQUIDEA WAITE Department: Room: - Gender: F Balancer Scale: ct : 1965 Requested By: Tamara Alberto Order Number: [id number] Reading MD: London Spicer Measurements Intervals [place] Rate: 83 P: 34 FL: 173 QRS: -14 QRSD: 107 T: 46 QT: 366 QTc: 432 Interpretive Statements SINUS RHYTHM NO PRIORS FOR COMPARISON Electronically Signed On 11-20-2018 17:19:20 EST by London Spicer
== END 2018-11-20 14:51 | disposition home or self-care (01) ==
LOC: M ED 12:14
DX: F07.81 Postconcussional syndrome (principal); I10 Essential (primary) hypertension; E78.5 Hyperlipidemia, unspecified; Z79.899 Other long term (current) drug therapy

== ENCOUNTER → 2019-02-19 | Outpatient (CLI) | payer OTHER ==
[2019-02-19 21:46] LABS: ALBUMIN 4.3 GM/DL (3.2-5.2); ALT/SGPT 47 U/L (12-78); BILIRUBIN,TOTAL 0.3 MG/DL (0.2-1.0); BLOOD UREA NITROGEN 14 MG/DL (7-18); CALCIUM LEVEL 9.7 MG/DL (8.5-10.1); CARBON DIOXIDE LEVEL 25 MEQ/L (21-32); CHLORIDE LEVEL 107 MEQ/L (98-107); CREATININE FOR GFR 0.76 MG/DL (0.55-1.30); GLOMERULAR FILTRATION RATE > 60.0 (>51); GLUCOSE, FASTING 77 MG/DL (70-100); POTASSIUM SERUM 4.2 MEQ/L (3.5-5.1); SODIUM LEVEL 139 MEQ/L (136-145); TOTAL 25(OH) VITAMIN D 21.5 NG/ML (30.0-100.0); TOTAL PROTEIN 7.6 GM/DL (6.4-8.2)
== END ==
LOC: M WUC 16:17
PROVIDERS: ATTEND Nurse Practitioner Family
DX: I10 Essential (primary) hypertension (principal); R73.03 Prediabetes; E55.9 Vitamin D deficiency, unspecified

== ENCOUNTER → 2019-04-17 | Outpatient (CLI) | payer OTHER ==
--- NOTE | 2019-04-18 07:32 | REP ---
RIGHT UPPER QUADRANT ULTRASOUND: 04/17/2019. COMPARISON: 09/10/2017. CLINICAL HISTORY: Prior quadrant pain for 2 months, nausea without vomiting. FINDINGS: Sonographic evaluation of the right upper quadrant shows the liver homogeneous hyperechoic representing fatty infiltration. There is no intrahepatic biliary dilatation, hepatic mass, cyst nor perihepatic ascites. Gallbladder is 7.3 x 3.2 x 2.2 cm. There is no abnormal wall thickening, stone, sludge or pericholecystic fluid. Con[address] Judge defines a positive sonographic Garland's sign, however. The common duct is 2.7 mm and normal without filling defect. Pancreas seen was grossly unremarkable without calcification, mass or adjacent fluid collection/adenopathy. Right kidney is 11.1 x 4.7 x 4.4 cm without hydronephrosis or stone. IMPRESSION: 1. Diffuse fatty infiltration of the liver without focal hepatic mass, intrahepatic biliary dilatation, ascites or common duct dilatation. 2. Gallbladder was normal in size and wall thickness of only 1.5 mm without stone, sludge or pericholecystic fluid. However, there was a positive sonographic Garland's sign. Please correlate clinically. 3. Pancreas and right kidney unremarkable.
== END ==
LOC: M WHC 09:27
PROVIDERS: ATTEND Nurse Practitioner Family
DX: K76.0 Fatty (change of) liver, not elsewhere classified (principal)

== ENCOUNTER 2019-04-22 03:44 | Emergency (ER) | payer OTHER ==
[~2019-04-22] VITALS: Ht 154.9 cm; Wt 81.8 kg
[2019-04-22] MEDS ORDERED: ONDANSETRON 4 MG ORAL DISINTEGRATING TAB (Q0162 PER 1MG) As Ordered ONE (04:07)
[2019-04-22] MEDS ORDERED: ONDANSETRON 4 MG ORAL DISINTEGRATING TAB (Q0162 PER 1MG) PO ONE (04:15)
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
[2019-04-22 06:50] VITALS: BP 157/88
== END 2019-04-22 06:51 | disposition home or self-care (01) ==
LOC: M ED 03:44
DX: S00.93XA Contusion of unspecified part of head, initial encounter (principal); W22.8XXA Striking against or struck by other objects, initial encounter; Y92.098 Other place in other non-institutional residence as the place of occurrence of the external cause; I10 Essential (primary) hypertension; Z79.899 Other long term (current) drug therapy
CPT/HCPCS: 70450; 99283; Q0162

== ENCOUNTER → 2019-07-26 | Outpatient (CLI) | payer OTHER ==
[2019-07-26 11:07] LABS: ALT/SGPT 68 U/L (12-78); BILIRUBIN,TOTAL 0.4 MG/DL (0.2-1.0); BLOOD UREA NITROGEN 14 MG/DL (7-18); CALCIUM LEVEL 9.1 MG/DL (8.5-10.1); CARBON DIOXIDE LEVEL 27 MEQ/L (21-32); CHLORIDE LEVEL 105 MEQ/L (98-107); CHOLESTEROL LEVEL 251 MG/DL (<200); CHOLESTEROL RISK RATIO 5.456 (<5); CREATININE FOR GFR 0.66 MG/DL (0.55-1.30); GLOMERULAR FILTRATION RATE > 60.0 (>51); GLUCOSE, FASTING 91 MG/DL (70-100); HDL CHOLESTEROL 46 MG/DL (>40); LDL CHOLESTEROL 161 MG/DL (<100); NON-HDL-C 205 MG/DL; POTASSIUM SERUM 4.1 MEQ/L (3.5-5.1); SODIUM LEVEL 139 MEQ/L (136-145); TOTAL PROTEIN 7.5 GM/DL (6.4-8.2); TRIGLYCERIDES LEVEL 222 MG/DL (<150)
[2019-07-26 11:13] LABS: HEMOGLOBIN A1c 6.3 %
[2019-07-28 10:34] LABS: TOTAL 25(OH) VITAMIN D 49.7 NG/ML (30.0-100.0)
== END ==
LOC: M LAB 09:22
PROVIDERS: ATTEND Nurse Practitioner Family
DX: R73.03 Prediabetes (principal); E78.2 Mixed hyperlipidemia; E55.9 Vitamin D deficiency, unspecified

== ENCOUNTER → 2019-10-28 | Outpatient (REF) | payer OTHER ==
[2019-10-28 12:19] LABS: ALBUMIN 4.2 GM/DL (3.2-5.2); ALT/SGPT 52 U/L (12-78); BILIRUBIN,TOTAL 0.3 MG/DL (0.2-1.0); BLOOD UREA NITROGEN 14 MG/DL (7-18); CALCIUM LEVEL 9.4 MG/DL (8.5-10.1); CARBON DIOXIDE LEVEL 26 MEQ/L (21-32); CHLORIDE LEVEL 105 MEQ/L (98-107); CHOLESTEROL LEVEL 218 MG/DL (<200); CHOLESTEROL RISK RATIO 4.638 (<5); CPK CREATINE PHOSPHOKINASE 119 U/L (26-192); CREATININE FOR GFR 0.79 MG/DL (0.55-1.30); GLOMERULAR FILTRATION RATE > 60.0 (>51); GLUCOSE, FASTING 99 MG/DL (70-100); HDL CHOLESTEROL 47 MG/DL (>40); LDL CHOLESTEROL 100 MG/DL (<100); NON-HDL-C 171 MG/DL; POTASSIUM SERUM 4.3 MEQ/L (3.5-5.1); SODIUM LEVEL 139 MEQ/L (136-145); TOTAL 25(OH) VITAMIN D 31.3 NG/ML (30.0-100.0); TRIGLYCERIDES LEVEL 357 MG/DL (<150)
[2019-10-28 12:31] LABS: CREATININE, URINE 57.2 MG/DL; MALB URINE SIEMENS 5.8 MG/L; MAU/CREAT RATIO 10.1 MCG/MG (0.0-30.0)
[2019-10-28 13:07] LABS: HEMOGLOBIN A1c 6.3 %
== END ==
LOC: M LABDRAW1 11:35
PROVIDERS: ATTEND Nurse Practitioner Family
DX: K76.0 Fatty (change of) liver, not elsewhere classified (principal); R73.03 Prediabetes; I10 Essential (primary) hypertension; E78.2 Mixed hyperlipidemia; M79.10 Myalgia, unspecified site; E55.9 Vitamin D deficiency, unspecified

== ENCOUNTER → 2019-11-11 | Outpatient (CLI) | payer OTHER ==
--- NOTE | 2019-11-11 14:52 | REPMRS ---
Patient History The patient states she had a clinical breast exam in October 2019. Family history of breast cancer at age 50 or over in mother. Digital Mammo Diagnostic Bilateral: November 11, 2019 - Exam #: [id number] Bilateral CC and MLO view(s) were taken. Technologist: Hetal Parks, Technologist Prior study comparison: August 27, 2018, bilateral digital woman screen mammo, performed at [facility]. October 15, 2015, digital woman screen mammo, performed at [facility]. March 12, 2014, digital woman screen mammo, performed at [facility]. March 24, 2011, bilateral bilat screen digital mammo, performed at [facility]. FINDINGS: There are scattered fibroglandular densities. There is a moderate amount of residual fibroglandular tissue which is fairly symmetric. There is no interval development of dominant mass, architectural distortion, or grouped microcalcification typical of malignancy. There has been no change in the appearance of the mammogram from the prior studies. 3-D tomosynthesis shows no additional findings. Assessment: BI-RADS/ACR category 1 mammogram. Negative Mammogram. Recommendation Routine screening mammogram of both breasts in 1 year (for women over age 40). This patient's Lifetime Breast Cancer RIsk is estimated at 15.3 %. This mammogram was interpreted with the aid of an FDA-approved computer-aided dectection system. Electronically Signed By: Kermit Piña MD 11/11/19 0881
== END ==
LOC: M RAD 13:27
PROVIDERS: ATTEND Nurse Practitioner Family
DX: N64.4 Mastodynia (principal)

== ENCOUNTER → 2020-01-20 | Outpatient (CLI) | payer OTHER ==
--- NOTE | 2020-01-21 15:07 | REPPI ---
Clinical: Acute left knee pain. Technique: AP, lateral, bilateral oblique and sunrise views of the left knee. Findings: [place] view demonstrates minimal patellofemoral joint space narrowing. The remainder of the examination is essentially age-appropriate and without further arthritic changes noted. No acute fracture dislocation. Lateral view suggests suprapatellar effusion and clinical/physical correlation is recommended. Impression: 1. Mild degenerative changes at the patellofemoral joint space along with suprapatellar effusion. Correlation is recommended. Electronically Signed by Michael Ochoa MD 01/21/2020 02:59 P
--- NOTE | 2020-01-21 15:09 | REPPI ---
Clinical: Acute left knee pain. Technique: Single AP weightbearing view of the right and left knee. Findings: Joint spaces are symmetric and relatively age-appropriate. Minimal symmetric narrowing and increased sclerosis along the medial tibial plateaus are noted bilaterally. Impression: Symmetric relatively age- related changes. Electronically Signed by Michael Ochoa MD 01/21/2020 03:01 P
== END ==
LOC: M PLAIMG 14:54
PROVIDERS: ATTEND Nurse Practitioner Family
DX: M25.562 Pain in left knee (principal)

== ENCOUNTER → 2020-06-07 | Outpatient (CLI) | payer OTHER ==
--- NOTE | 2020-07-06 07:35 | REP ---
RIGHT KNEE SERIES CLINICAL: Pain and decreased range of motion. TECHNIQUE: AP, lateral, bilateral oblique, and sunrise views of the right knee. FINDINGS: Increased sclerosis to the medial tibial plateau with subtle joint space narrowing is appreciated. [place] view demonstrates increased sclerosis along the posterior patellar margin with lateral spurring and decreased patellofemoral joint space. No acute fracture or dislocation. No obvious effusion. IMPRESSION: Early arthritic changes as described above. MTDD
== END ==
LOC: M WUC 14:15
PROVIDERS: ATTEND Physician Assistant
DX: M25.561 Pain in right knee (principal); M17.11 Unilateral primary osteoarthritis, right knee

== ENCOUNTER → 2020-07-08 | Outpatient (CLI) | payer OTHER | LOC: M LABSMTC 10:57 | PROVIDERS: ATTEND Anesthesiology | DX: Z01.812 Encounter for preprocedural laboratory examination (principal); Z20.828 Contact with and (suspected) exposure to other viral communicable diseases | CPT/HCPCS: C9803; U0003 ==

== ENCOUNTER 2020-07-13 08:50 | Day surgery (SDC) | payer OTHER ==
[~2020-07-13] VITALS: Ht 152.4 cm; Wt 83.0 kg
[~2020-07-13 08:50] MED LIST changes: +NS 1,000 ML IV ONE
[2020-07-13] MEDS ORDERED: LIDOCAINE 2% 100MG/5ML SDV (FOR ANES.) As Ordered ONE (09:18)
[2020-07-13] MEDS ORDERED: propofoL 200 MG/20 ML VIAL As Ordered ONE (09:18)
--- NOTE | 2020-07-13 10:34 | ROOR ---
Patient Name: Alisa Wilson Procedure Date: 07/13/2020 10:10 AM Date of : 1965 Age: 54 Room: [facility] Gender: Female Note Status: Finalized Procedure: Colonoscopy Indications: High risk colon cancer surveillance: Personal history of colonic polyps, Surveillance: History of piecemeal removal adenoma on last colonoscopy (< 3 yrs), High risk colon cancer surveillance: Personal history of sessile serrated colon polyp (10 mm or greater in size) Providers: Pool MONCADA MD Referring MD: Amber Hoffman NP Requesting Provider: Medicines: Monitored Anesthesia Care Complications: No immediate complications. Procedure: Pre-Anesthesia Assessment: - The heart rate, respiratory rate, oxygen saturations, blood pressure, adequacy of pulmonary ventilation, and response to care were monitored throughout the procedure. The Colonoscope was introduced through the anus and advanced to the terminal ileum, with identification of the appendiceal orifice and IC valve. The colonoscopy was performed without difficulty. The patient tolerated the procedure well. The quality of the bowel preparation was good. Findings: The perianal and digital rectal examinations were normal. Small Internal Hemorrhoids. The entire examined colon appeared normal on direct and retroflexion views. Impression: - Small Internal Hemorrhoids. - The entire colon is normal on direct and retroflexion views. - No specimens collected. Recommendation: - Repeat colonoscopy in 5 years for surveillance. Pool Moncada MD Pool MONCADA MD 07/13/2020 10:33:40 AM Electronically signed by Pool MONCADA MD Number of Addenda: 0 Note Initiated On: 07/13/2020 10:10 AM Estimated Blood Loss: Estimated blood loss: none.
[2020-07-13 10:53] VITALS: BP 124/88
== END 2020-07-13 10:57 | disposition home or self-care (01) ==
LOC: M OPP 08:50
PROVIDERS: ATTEND Internal Medicine Gastroenterology
DX: Z12.11 Encounter for screening for malignant neoplasm of colon (principal); Z86.010 Personal history of colon polyps; K64.8 Other hemorrhoids; I10 Essential (primary) hypertension; R73.03 Prediabetes; M19.90 Unspecified osteoarthritis, unspecified site; D64.9 Anemia, unspecified; Z79.899 Other long term (current) drug therapy; Z80.1 Family history of malignant neoplasm of trachea, bronchus and lung; Z80.3 Family history of malignant neoplasm of breast; Z82.49 Family history of ischemic heart disease and other diseases of the circulatory system

== ENCOUNTER → 2021-03-18 | Outpatient (REF) | payer OTHER ==
[~2021-03-18] MED LIST changes: -LISI-542 PO; +LISI-898 PO; -NS 1,000 ML IV ONE
== END ==
LOC: M LAB REF 09:21
PROVIDERS: ATTEND Physician Assistant
DX: R30.0 Dysuria (principal)

== ENCOUNTER → 2021-06-02 | Outpatient (CLI) | payer OTHER ==
[2021-06-02 11:26] LABS: ALBUMIN 3.8 GM/DL (3.2-5.2); ALT/SGPT 103 U/L (12-78); BILIRUBIN,TOTAL 0.5 MG/DL (0.2-1.0); BLOOD UREA NITROGEN 12 MG/DL (7-18); CALCIUM LEVEL 9.5 MG/DL (8.5-10.1); CARBON DIOXIDE LEVEL 28 MEQ/L (21-32); CHLORIDE LEVEL 106 MEQ/L (98-107); CHOLESTEROL LEVEL 276 MG/DL (<200); CREATININE FOR GFR 0.72 MG/DL (0.55-1.30); GLOMERULAR FILTRATION RATE > 60.0 (>51); GLUCOSE, FASTING 102 MG/DL (70-100); HDL CHOLESTEROL 40 MG/DL (>40); LDL CHOLESTEROL 171 MG/DL (<100); NON-HDL-C 236 MG/DL; POTASSIUM SERUM 4.5 MEQ/L (3.5-5.1); SODIUM LEVEL 139 MEQ/L (136-145); TOTAL PROTEIN 7.7 GM/DL (6.4-8.2); TRIGLYCERIDES LEVEL 325 MG/DL (<150)
[2021-06-02 11:33] LABS: TOTAL 25(OH) VITAMIN D 28.8 NG/ML (30.0-100.0)
[2021-06-02 11:37] LABS: CREATININE, URINE 99.7 MG/DL; MALB URINE SIEMENS 7.3 MG/L; MAU/CREAT RATIO 7.3 MCG/MG (0.0-30.0)
[2021-06-02 17:52] LABS: HEMOGLOBIN A1c 6.3 %
== END ==
LOC: M PLALAB 08:36
PROVIDERS: ATTEND Nurse Practitioner Family
DX: E78.2 Mixed hyperlipidemia (principal)

== ENCOUNTER → 2021-06-08 | Outpatient (CLI) | payer OTHER ==
[2021-06-08 17:41] LABS: ALT/SGPT 88 U/L (12-78); BILIRUBIN,DIRECT < 0.1 MG/DL (0.0-0.2); BILIRUBIN,TOTAL 0.4 MG/DL (0.2-1.0); TOTAL PROTEIN 7.6 GM/DL (6.4-8.2)
[2021-06-08 18:28] LABS: HEPATITIS B SURFACE ANTIGEN NEGATIVE (NEGATIVE)
[2021-06-08 18:55] LABS: HEPATITIS C VIRUS ABY INDEX < 0.0 INDEX (<0.8)
[2021-06-08 18:56] LABS: HEPATITIS B CORE ANTIBODY IGM NEGATIVE (NEGATIVE)
[2021-06-08 18:58] LABS: HEPATITIS A ANTIBODY IGM NEGATIVE (NEGATIVE)
--- NOTE | 2021-06-09 06:45 | REP ---
INDICATION: FINDING OF OTH SUBSTANCES, NOT NORMALLY FOUND IN BLOOD COMPARISON: None. TECHNIQUE: AP, lateral, and swimmers views. FINDINGS: Alignment and kyphosis is maintained. Vertebral bodies intact. No acute fracture / compression injury or subluxation. Degenerative changes include bridging osteophytes primarily along the right-side of the vertebral bodies with minimal endplate sclerosis and disc space narrowing. Paravertebral soft tissues are normal. IMPRESSION: Minimal, and presumed age-related changes to the thoracic spine. <Electronically signed by Michael Ochoa > 06/09/21 0649
== END ==
LOC: M PLAIMG 12:45
PROVIDERS: ATTEND Nurse Practitioner Family
DX: R78.89 Finding of other specified substances, not normally found in blood (principal)

== ENCOUNTER → 2021-06-30 | Outpatient (CLI) | payer OTHER ==
[2021-06-30 10:58] LABS: BILIRUBIN,DIRECT 0.1 MG/DL (0.0-0.2); BILIRUBIN,TOTAL 0.5 MG/DL (0.2-1.0); TOTAL PROTEIN 7.6 GM/DL (6.4-8.2)
== END ==
LOC: M PLALAB 08:42
PROVIDERS: ATTEND Nurse Practitioner Family
DX: R79.89 Other specified abnormal findings of blood chemistry (principal)

== ENCOUNTER → 2021-06-30 | Outpatient (CLI) | payer OTHER ==
--- NOTE | 2021-06-30 11:24 | REP ---
INDICATION: LFT ELEV/R79.89. COMPARISON: 04/17/2019. TECHNIQUE: Real-time sonographic evaluation of right upper quadrant performed. FINDINGS: The gallbladder demonstrates no evidence of intraluminal sludge or calculi, wall thickening or pericholecystic fluid. There is no intrahepatic or extrahepatic biliary dilatation, common bile duct measures 5 mm in maximum diameter. Liver is enlarged with a length of 19.7 cm. There is diffuse increased echotexture of the liver compatible with diffuse fibrofatty infiltration. No focal mass is seen. The visualized pancreas is grossly unremarkable, not optimally seen due to overlying bowel gas. The right kidney demonstrates no hydronephrosis, with a normal size of 11.7 cm in length. No free fluid is seen. IMPRESSION: Hepatomegaly with diffuse fibrofatty infiltration. No liver mass identified. <Electronically signed by Richard Trujillo > 06/30/21 [id number]
== END ==
LOC: M WHC 07:54
PROVIDERS: ATTEND Nurse Practitioner Family
DX: R16.0 Hepatomegaly, not elsewhere classified (principal)

== ENCOUNTER → 2021-08-01 | Outpatient (CLI) | payer OTHER ==
--- NOTE | 2021-08-01 14:03 | REPMRS ---
Patient History The patient states she had a clinical breast exam in 2020. Family history of breast cancer at age 50 or over in mother. Moderna vaccine 12/09/20 right arm. 01/07/21 left arm. Patient states no breast complaints today. Patient has signed MRS History Sheet. Digital Woman Screen Mammo: August 01, 2021 - Exam #: [id number] Bilateral CC and MLO view(s) were taken. Technologist: RT Briana Prior study comparison: November 11, 2019, digital mammo diagnostic bilateral, performed at [facility]. August 27, 2018, bilateral digital woman screen mammo, performed at [facility]. FINDINGS: There are scattered fibroglandular densities. Screening. Digital screening (2D) mammography was performed bilaterally in the CC and MLO projections. Additionally, breast tomosynthesis (3D mammography) was performed bilaterally in the CC and MLO projections. Todays exam was compared to the prior exam/exams. By history, the patient has no complaints of a palpable breast abnormality or other significant breast complaints. The [place] volumetric breast density category is B, there are scattered areas of fibroglandular densities. The breasts are unchanged in size and shape. There are no blanca-soft tissue densities or spiculated masses. There is no internal architectural distortion. There are no suspicious blanca-calcific clusters. Skin thickening or nipple retraction is not present. IMPRESSION: BI-RADS Category 2- Benign Findings. There is no evidence of malignant alteration of the breasts. Followup examination recommended in one year. The lifetime Tyrer-Cuzick score is 14.9% This mammogram was read with the assistance of Vaishnavi Vidcaster,an FDA approved computer aided detection system for mammography. Negative x-ray reports should not delay surgical consultation if a dominant or clinically suspicious mass is present. Not all breast cancers can be identified by mammography. Therefore, we recommend that you continue to perform regular breast self-examination and physical examination and then promptly contact your physician of any concerns or changes. Adenosis and dense breasts may obscure an underlying neoplasm. No significant changes when compared with prior studies. Assessment: BI-RADS/ACR category 2 mammogram. Benign Findings. Recommendation Routine screening mammogram of both breasts in 1 year. Electronically Signed By: Goran Smith MD 08/01/21 [id number]
== END ==
LOC: M WHC 13:11
PROVIDERS: ATTEND Nurse Practitioner Family
DX: Z12.31 Encounter for screening mammogram for malignant neoplasm of breast (principal); Z80.3 Family history of malignant neoplasm of breast

== ENCOUNTER → 2021-12-02 | Outpatient (CLI) | payer OTHER ==
[~2021-12-02] MED LIST changes: -LISI-898 PO; +LISI5TAB11 PO
[2021-12-02 15:28] LABS: ALBUMIN 4.1 GM/DL (3.2-5.2); ALT/SGPT 55 U/L (12-78); BILIRUBIN,TOTAL 0.2 MG/DL (0.2-1.0); BLOOD UREA NITROGEN 10 MG/DL (7-18); CALCIUM LEVEL 9.9 MG/DL (8.5-10.1); CARBON DIOXIDE LEVEL 29 MEQ/L (21-32); CHLORIDE LEVEL 107 MEQ/L (98-107); CHOLESTEROL LEVEL 290 MG/DL (<200); CREATININE FOR GFR 0.77 MG/DL (0.55-1.30); GLOMERULAR FILTRATION RATE > 60.0 (>51); GLUCOSE, FASTING 96 MG/DL (70-100); HDL CHOLESTEROL 47 MG/DL (>40); LDL CHOLESTEROL 175 MG/DL (<100); NON-HDL-C 243 MG/DL; POTASSIUM SERUM 4.7 MEQ/L (3.5-5.1); SODIUM LEVEL 141 MEQ/L (136-145); TOTAL PROTEIN 8.2 GM/DL (6.4-8.2); TRIGLYCERIDES LEVEL 338 MG/DL (<150)
[2021-12-02 15:36] LABS: TOTAL 25(OH) VITAMIN D 20.4 NG/ML (30.0-100.0)
== END ==
LOC: M PLALAB 10:54
PROVIDERS: ATTEND Nurse Practitioner Family
DX: R73.03 Prediabetes (principal)

== ENCOUNTER → 2021-12-29 | Outpatient (CLI) | payer OTHER ==
[2021-12-29 17:48] LABS: BASO # 0.1 10^3/uL (0.0-0.2); BASO % 1.1 % (0.0-1.0); EOS # 0.2 10^3/uL (0.0-0.5); EOS % 2.3 % (0.0-3.0); HEMATOCRIT 42.2 % (36.0-47.0); HEMOGLOBIN 13.5 g/dl (12.0-15.5); LYMPH # 3.6 10^3/uL (1.5-5.0); LYMPH % 47.9 % (24.0-44.0); MEAN CORPUSCULAR HEMOGLOBIN 26.7 pg (27.0-33.0); MEAN CORPUSCULAR VOLUME 83.4 fl (80.0-96.0); MONO # 0.6 10^3/uL (0.0-0.8); MONO % 8.5 % (2.0-8.0); NEUTROPHILS % 40.1 % (36.0-66.0); PLATELET COUNT, AUTOMATED 362 10^3/uL (150-450); RED BLOOD COUNT 5.06 10^6/uL (4.00-5.40); WHITE BLOOD COUNT 7.5 10^3/uL (4.0-10.0)
[2021-12-29 18:17] LABS: FREE T4 0.87 NG/DL (0.76-1.46); THYROID STIMULATING HORMONE 1.82 uIU/ML (0.358-3.740)
== END ==
LOC: M PLALAB 15:17
PROVIDERS: ATTEND Physician Assistant
DX: R53.83 Other fatigue (principal)

== ENCOUNTER → 2022-04-21 | Outpatient (CLI) | payer OTHER ==
[2022-04-21 13:08] LABS: BASO # 0.1 10^3/uL (0.0-0.2); BASO % 1.3 % (0.0-1.0); EOS # 0.3 10^3/uL (0.0-0.5); EOS % 4.8 % (0.0-3.0); HEMATOCRIT 43.8 % (36.0-47.0); HEMOGLOBIN 13.8 g/dl (12.0-15.5); LYMPH # 2.6 10^3/uL (1.5-5.0); LYMPH % 40.4 % (24.0-44.0); MEAN CORPUSCULAR HEMOGLOBIN 26.6 pg (27.0-33.0); MEAN CORPUSCULAR HGB CONC 31.5 g/dl (32.0-36.5); MEAN CORPUSCULAR VOLUME 84.4 fl (80.0-96.0); MONO # 0.7 10^3/uL (0.0-0.8); MONO % 10.3 % (2.0-8.0); NEUTROPHILS # 2.7 10^3/uL (1.5-8.5); PLATELET COUNT, AUTOMATED 323 10^3/uL (150-450); RED BLOOD COUNT 5.19 10^6/uL (4.00-5.40); WHITE BLOOD COUNT 6.3 10^3/uL (4.0-10.0)
[2022-04-21 13:14] LABS: ALBUMIN 3.9 GM/DL (3.2-5.2); ALT/SGPT 46 U/L (12-78); BILIRUBIN,TOTAL 0.3 MG/DL (0.2-1.0); BLOOD UREA NITROGEN 16 MG/DL (7-18); CALCIUM LEVEL 9.9 MG/DL (8.5-10.1); CARBON DIOXIDE LEVEL 26 MEQ/L (21-32); CHLORIDE LEVEL 108 MEQ/L (98-107); CHOLESTEROL LEVEL 289 MG/DL (<200); CHOLESTEROL RISK RATIO 7.225 (<5); CREATININE FOR GFR 0.81 MG/DL (0.55-1.30); GLOMERULAR FILTRATION RATE > 60.0 (>51); GLUCOSE, FASTING 106 MG/DL (70-100); HDL CHOLESTEROL 40 MG/DL (>40); NON-HDL-C 249 MG/DL; PHOSPHORUS LEVEL 2.8 MG/DL (2.5-4.9); POTASSIUM SERUM 4.8 MEQ/L (3.5-5.1); SODIUM LEVEL 142 MEQ/L (136-145); TOTAL PROTEIN 7.7 GM/DL (6.4-8.2); TRIGLYCERIDES LEVEL 459 MG/DL (<150)
[2022-04-21 13:39] LABS: MALB URINE SIEMENS 9.6 MG/L; MAU/CREAT RATIO 8.1 MCG/MG (0.0-30.0)
[2022-04-21 14:08] LABS: HEMOGLOBIN A1c 6.2 %
== END ==
LOC: M PLALAB 09:15
PROVIDERS: ATTEND Physician Assistant
DX: E78.2 Mixed hyperlipidemia (principal); I10 Essential (primary) hypertension; R73.03 Prediabetes

== ENCOUNTER 2022-12-15 15:03 | Emergency (ER) | payer OTHER, SELFPAY ==
[~2022-12-15] VITALS: Ht 154.9 cm; Wt 82.5 kg
[2022-12-15 16:06] LABS: BASO % 0.7 % (0.0-1.0); EOS # 0.1 10^3/uL (0.0-0.5); EOS % 2.2 % (0.0-3.0); HEMATOCRIT 45.5 % (36.0-47.0); HEMOGLOBIN 14.5 g/dl (12.0-15.5); LYMPH # 2.6 10^3/uL (1.5-5.0); MEAN CORPUSCULAR HEMOGLOBIN 26.6 pg (27.0-33.0); MEAN CORPUSCULAR HGB CONC 31.9 g/dl (32.0-36.5); MEAN CORPUSCULAR VOLUME 83.5 fl (80.0-96.0); MONO # 0.4 10^3/uL (0.0-0.8); MONO % 6.2 % (2.0-8.0); NEUTROPHILS # 2.9 10^3/uL (1.5-8.5); NEUTROPHILS % 47.7 % (36.0-66.0); PLATELET COUNT, AUTOMATED 345 10^3/uL (150-450); RED BLOOD COUNT 5.45 10^6/uL (4.00-5.40)
[2022-12-15 16:42] LABS: LIPASE 70 U/L (12-53)
[2022-12-15 16:44] LABS: CPK CREATINE PHOSPHOKINASE 290 U/L (34-145)
[2022-12-15 16:48] LABS: ALBUMIN 4.5 G/DL (3.2-5.2); ALKALINE PHOSPHATASE 77 U/L (46-116); ALT/SGPT 59 U/L (7.0-40); AST/SGOT 54 U/L (<34); BILIRUBIN,DIRECT 0.1 MG/DL (<0.4); BILIRUBIN,TOTAL 0.5 MG/DL (0.3-1.2); BLOOD UREA NITROGEN 13 MG/DL (9-23); CALCIUM LEVEL 10.1 MG/DL (8.5-10.1); CARBON DIOXIDE LEVEL 26 MMOL/L (20-31); CHLORIDE LEVEL 104 MMOL/L (98-107); CK-MB VALUE MASS 1.6 NG/ML (<3.6); CREATININE FOR GFR 0.77 MG/DL (0.55-1.30); FREE T4 1.01 NG/DL (0.89-1.76); GLOMERULAR FILTRATION RATE > 60.0 (>51); GLUCOSE, FASTING 185 MG/DL (60-100); MB/CK RELATIVE INDEX 0.55 (< OR =4); POTASSIUM SERUM 3.6 MMOL/L (3.5-5.1); SODIUM LEVEL 139 MMOL/L (136-145); THYROID STIMULATING HORMONE 2.309 uIU/ML (0.55-4.78); TOTAL PROTEIN 8.1 G/DL (5.7-8.2)
[2022-12-15] MEDS ORDERED: ISOVUE-370 76% 100ML VIAL As Ordered ONE (17:02)
[2022-12-15 17:33] LABS: CK-MB VALUE MASS 1.4 NG/ML (<3.6)
[2022-12-15 17:37] LABS: MB/CK RELATIVE INDEX 0.54 (< OR =4)
[2022-12-15 18:43] VITALS: BP 121/60
== END 2022-12-15 18:47 | disposition home or self-care (01) ==
LOC: M ED 15:03
DX: R07.9 Chest pain, unspecified (principal); I10 Essential (primary) hypertension; E78.5 Hyperlipidemia, unspecified; D50.9 Iron deficiency anemia, unspecified; Z79.899 Other long term (current) drug therapy
CPT/HCPCS: 36415; 71045; 71275; 80048; 80076; 82550; 82553; 83690; 84439; 84443; 84484; 85025; 93005; 93041; 94760; 99285; Q9967

== ENCOUNTER → 2023-02-17 | Outpatient (CLI) | payer OTHER ==
[2023-02-17 09:38] LABS: BASO # 0.1 10^3/uL (0.0-0.2); BASO % 1.3 % (0.0-1.0); EOS # 0.2 10^3/uL (0.0-0.5); HEMATOCRIT 44.1 % (36.0-47.0); HEMOGLOBIN 13.9 g/dl (12.0-15.5); LYMPH # 2.2 10^3/uL (1.5-5.0); LYMPH % 40.8 % (24.0-44.0); MEAN CORPUSCULAR HEMOGLOBIN 26.8 pg (27.0-33.0); MEAN CORPUSCULAR HGB CONC 31.5 g/dl (32.0-36.5); MEAN CORPUSCULAR VOLUME 85.1 fl (80.0-96.0); MONO # 0.6 10^3/uL (0.0-0.8); MONO % 10.4 % (2.0-8.0); NEUTROPHILS # 2.3 10^3/uL (1.5-8.5); NEUTROPHILS % 43.3 % (36.0-66.0); PLATELET COUNT, AUTOMATED 313 10^3/uL (150-450); RED BLOOD COUNT 5.18 10^6/uL (4.00-5.40); WHITE BLOOD COUNT 5.3 10^3/uL (4.0-10.0)
[2023-02-17 09:56] LABS: CPK CREATINE PHOSPHOKINASE 232 U/L (34-145)
[2023-02-17 09:57] LABS: ALBUMIN 4.3 G/DL (3.2-5.2); ALKALINE PHOSPHATASE 68 U/L (46-116); ALT/SGPT 40 U/L (7.0-40); AST/SGOT 38 U/L (<34); BILIRUBIN,TOTAL 0.5 MG/DL (0.3-1.2); BLOOD UREA NITROGEN 19 MG/DL (9-23); CALCIUM LEVEL 9.7 MG/DL (8.5-10.1); CARBON DIOXIDE LEVEL 26 MMOL/L (20-31); CHLORIDE LEVEL 106 MMOL/L (98-107); CHOLESTEROL LEVEL 243 MG/DL (<200); CHOLESTEROL RISK RATIO 4.27 (<5); CREATININE FOR GFR 0.69 MG/DL (0.55-1.30); GLOMERULAR FILTRATION RATE > 60.0 (>51); GLUCOSE, FASTING 99 MG/DL (60-100); HDL CHOLESTEROL 56.9 MG/DL (>40); LDL CHOLESTEROL 155.9 MG/DL (<100); NON-HDL-C 186.1 MG/DL; POTASSIUM SERUM 4.2 MMOL/L (3.5-5.1); SODIUM LEVEL 140 MMOL/L (136-145); TOTAL PROTEIN 7.6 G/DL (5.7-8.2); TRIGLYCERIDES LEVEL 151 MG/DL (<150)
[2023-02-17 09:58] LABS: THYROID STIMULATING HORMONE 2.515 uIU/ML (0.55-4.78)
[2023-02-17 09:59] LABS: FREE T4 0.88 NG/DL (0.89-1.76)
[2023-02-17 10:00] LABS: HEMOGLOBIN A1c 5.9 % (4.0-6.0)
== END ==
LOC: M LAB 08:22
PROVIDERS: ATTEND Physician Assistant
DX: I10 Essential (primary) hypertension (principal)

== ENCOUNTER → 2023-02-20 | Outpatient (CLI) | payer OTHER | LOC: M WHC 15:52 | PROVIDERS: ATTEND Physician Assistant | DX: Z12.31 Encounter for screening mammogram for malignant neoplasm of breast (principal) ==

== ENCOUNTER → 2023-04-14 | Outpatient (CLI) | payer OTHER ==
[~2023-04-14] MED LIST changes: +CYCL-707 PO; +LIDO5DIS41 TD; +NAPR-837 PO; +NEUR300C PO; +PRED20TA PO
[2023-04-14 14:26] LABS: BASO % 0.2 % (0.0-1.0); HEMOGLOBIN 13.8 g/dl (12.0-15.5); LYMPH # 1.4 10^3/uL (1.5-5.0); LYMPH % 11.8 % (24.0-44.0); MEAN CORPUSCULAR HGB CONC 32.1 g/dl (32.0-36.5); MONO # 0.4 10^3/uL (0.0-0.8); MONO % 3.2 % (2.0-8.0); NEUTROPHILS # 9.9 10^3/uL (1.5-8.5); NEUTROPHILS % 84.2 % (36.0-66.0); PLATELET COUNT, AUTOMATED 351 10^3/uL (150-450); RED BLOOD COUNT 5.12 10^6/uL (4.00-5.40); WHITE BLOOD COUNT 11.7 10^3/uL (4.0-10.0)
[2023-04-14 14:57] LABS: ALBUMIN 3.9 G/DL (3.2-5.2); ALKALINE PHOSPHATASE 70 U/L (46-116); ALT/SGPT 27 U/L (7.0-40); AST/SGOT 14 U/L (<34); BILIRUBIN,TOTAL 0.4 MG/DL (0.3-1.2); BLOOD UREA NITROGEN 13 MG/DL (9-23); CALCIUM LEVEL 9.8 MG/DL (8.5-10.1); CARBON DIOXIDE LEVEL 24 MMOL/L (20-31); CHLORIDE LEVEL 107 MMOL/L (98-107); CHOLESTEROL LEVEL 272 MG/DL (<200); CHOLESTEROL RISK RATIO 4.36 (<5); CREATININE FOR GFR 0.65 MG/DL (0.55-1.30); GLOMERULAR FILTRATION RATE > 60.0 (>51); GLUCOSE, FASTING 148 MG/DL (60-100); HDL CHOLESTEROL 62.3 MG/DL (>40); LDL CHOLESTEROL 179.1 MG/DL (<100); NON-HDL-C 209.7 MG/DL; POTASSIUM SERUM 4.2 MMOL/L (3.5-5.1); SODIUM LEVEL 139 MMOL/L (136-145); TOTAL PROTEIN 7.8 G/DL (5.7-8.2); TRIGLYCERIDES LEVEL 153 MG/DL (<150)
[2023-04-14 14:58] LABS: FREE T4 0.81 NG/DL (0.89-1.76); THYROID STIMULATING HORMONE 0.521 uIU/ML (0.55-4.78)
[2023-04-14 14:59] LABS: TOTAL 25(OH) VITAMIN D 34.5 NG/ML (20.0-100.0)
[2023-04-14 15:07] LABS: CPK CREATINE PHOSPHOKINASE 138 U/L (34-145)
== END ==
LOC: M LAB 13:54
PROVIDERS: ATTEND Physician Assistant
DX: G72.9 Myopathy, unspecified (principal); R53.83 Other fatigue; I10 Essential (primary) hypertension; E55.9 Vitamin D deficiency, unspecified; E78.2 Mixed hyperlipidemia; R73.03 Prediabetes

== ENCOUNTER 2023-04-16 12:02 | Emergency (ER) | payer OTHER ==
[~2023-04-16] VITALS: Ht 154.9 cm; Wt 84.6 kg
[~2023-04-16 12:02] MED LIST changes: -CYCL-707 PO; -LIDO5DIS41 TD; -NAPR-837 PO; -NEUR300C PO; -PRED20TA PO
[2023-04-16] MEDS ORDERED: PRED20TA PO (12:14)
[2023-04-16] MEDS ORDERED: CYCL-707 PO ×2 (12:14→19:56)
[2023-04-16] MEDS ORDERED: diazePAM 10MG/2ML SYRINGE IV ONE ×2 (14:05→17:25)
[2023-04-16] MEDS ORDERED: KETOROLAC 30 MG/ML 1ML VIAL IV ONE ×2 (14:05→17:25)
[2023-04-16] MEDS ORDERED: LIDOCAINE 5% (LIDODERM) PATCH TD ONE (14:05)
[2023-04-16 14:24] LABS: BASO % 0.1 % (0.0-1.0); HEMOGLOBIN 14.1 g/dl (12.0-15.5); LYMPH # 1.9 10^3/uL (1.5-5.0); LYMPH % 20.3 % (24.0-44.0); MEAN CORPUSCULAR HEMOGLOBIN 26.9 pg (27.0-33.0); MONO # 0.5 10^3/uL (0.0-0.8); NEUTROPHILS % 74.1 % (36.0-66.0); PLATELET COUNT, AUTOMATED 355 10^3/uL (150-450); RED BLOOD COUNT 5.24 10^6/uL (4.00-5.40); WHITE BLOOD COUNT 9.5 10^3/uL (4.0-10.0)
[2023-04-16 15:40] LABS: LIPASE 38 U/L (12-53)
[2023-04-16 15:45] LABS: ALBUMIN 3.6 G/DL (3.2-5.2); ALKALINE PHOSPHATASE 59 U/L (46-116); ALT/SGPT 17 U/L (7.0-40); AST/SGOT < 8 U/L (<34); BILIRUBIN,DIRECT < 0.1 MG/DL (<0.4); BILIRUBIN,TOTAL 0.4 MG/DL (0.3-1.2); BLOOD UREA NITROGEN 21 MG/DL (9-23); CARBON DIOXIDE LEVEL 26 MMOL/L (20-31); CHLORIDE LEVEL 109 MMOL/L (98-107); CREATININE FOR GFR 0.62 MG/DL (0.55-1.30); GLOMERULAR FILTRATION RATE > 60.0 (>51); GLUCOSE, FASTING 90 MG/DL (60-100); POTASSIUM SERUM 3.9 MMOL/L (3.5-5.1); SODIUM LEVEL 142 MMOL/L (136-145); TOTAL PROTEIN 6.8 G/DL (5.7-8.2)
[2023-04-16] MEDS ORDERED: LIDO5DIS41 TD (19:56)
[2023-04-16] MEDS ORDERED: NAPR-837 PO (19:56)
[2023-04-16] MEDS ORDERED: NEUR300C PO (19:56)
[2023-04-16 20:19] VITALS: BP 178/85; TEMP 97.1; O2SAT 97
== END 2023-04-16 20:23 | disposition home or self-care (01) ==
LOC: M ED 12:02
DX: M51.36 Other intervertebral disc degeneration, lumbar region (principal); M54.31 Sciatica, right side; E11.9 Type 2 diabetes mellitus without complications; I10 Essential (primary) hypertension; E78.5 Hyperlipidemia, unspecified; Z87.442 Personal history of urinary calculi; Z79.899 Other long term (current) drug therapy; Z79.52 Long term (current) use of systemic steroids
CPT/HCPCS: 72148; 80048; 80076; 81001; 83690; 85025; 93005; 99284; J1885; J3360

== ENCOUNTER → 2023-05-31 | Outpatient (CLI) | payer OTHER ==
[~2023-05-31] MED LIST changes: +CYCL-707 PO; +LIDO5DIS41 TD; +NAPR-837 PO; +NEUR300C PO; +PRED20TA PO
== END ==
LOC: M SOG 08:08
PROVIDERS: ATTEND Orthopaedic Surgery
DX: M51.37 Other intervertebral disc degeneration, lumbosacral region (principal); M46.97 Unspecified inflammatory spondylopathy, lumbosacral region

== ENCOUNTER → 2024-12-02 | Outpatient (REF) | payer OTHER ==
[~2024-12-02] MED LIST changes: -BIOT50004 PO; +BIOT5CAP8 PO
[2024-12-02 17:43] LABS: APPEARANCE, URINE CLOUDY (CLEAR); BILIRUBIN, URINE AUTO NEGATIVE (NEGATIVE); BLOOD, URINE BLOOD 2+ (NEGATIVE); COLOR, URINE YELLOW (YELLOW); GLUCOSE, URINE (UA) AUTO NEGATIVE (NEGATIVE); KETONE, URINE AUTO NEGATIVE (NEGATIVE); LEUKOCYTE ESTERASE, URINE AUTO 3+ (NEGATIVE); NITRITE, URINE AUTO POSITIVE (NEGATIVE); PROTEIN, URINE AUTO 2+ mg/dL (NEGATIVE); RBC, URINE AUTO 31 /HPF (0-3); SPECIFIC GRAVITY URINE AUTO 1.011 (1.002-1.035); SQUAMOUS EPITHELIAL CELL UR AU 1 /HPF (0-6); UROBILINOGEN, URINE AUTO 0.2 mg/dL (0.0-2.0); WBC, URINE AUTO 179 /HPF (0-3)
[2024-12-02 17:49] LABS: BACTERIA, URINE AUTO 2+ (NEGATIVE)
== END ==
LOC: M LAB REF 16:50
PROVIDERS: ATTEND Physician Assistant
DX: N39.0 Urinary tract infection, site not specified (principal)

== ENCOUNTER 2025-06-08 02:04 | Emergency (ER) | payer OTHER ==
[~2025-06-08] VITALS: Ht 154.9 cm; Wt 80.9 kg
[~2025-06-08 02:04] MED LIST changes: +LIDO1ADH93 TD; -LIDO5DIS41 TD; -PRAV40TA2 PO; +PRAV40TA85 PO
[2025-06-08] MEDS ORDERED: FERR325T3 PO (02:17)
[2025-06-08] MEDS: NS (Normal Saline) 0.9% 1,000 ML IV ONE (07:29)
[2025-06-08 07:39] LABS: BASO # 0.1 10^3/uL (0.0-0.2); BASO % 0.9 % (0.0-1.0); EOS # 0.0 10^3/uL (0.0-0.5); EOS % 0.5 % (0.0-3.0); LYMPH # 2.5 10^3/uL (1.5-5.0); LYMPH % 31.1 % (24.0-44.0); MONO # 0.7 10^3/uL (0.0-0.8); MONO % 8.2 % (2.0-8.0); NEUTROPHILS # 4.7 10^3/uL (1.5-8.5); NEUTROPHILS % 59.0 % (36.0-66.0); PLATELET COUNT, AUTOMATED 359 10^3/uL (150-450)
[2025-06-08 08:07] LABS: ALT/SGPT 38 U/L (7.0-40); AST/SGOT 45 U/L (<34); CALCIUM LEVEL 10.5 MG/DL (8.5-10.1); CARBON DIOXIDE LEVEL 23 MMOL/L (20-31); CHLORIDE LEVEL 106 MMOL/L (98-107); CREATININE FOR GFR 0.66 MG/DL (0.55-1.30); GLOMERULAR FILTRATION RATE > 90.0 (>51); POTASSIUM SERUM 5.0 MMOL/L (3.5-5.1); SODIUM LEVEL 143 MMOL/L (136-145)
[2025-06-08 08:10] LABS: TOTAL 25(OH) VITAMIN D 50.5 NG/ML (20.0-100.0)
[2025-06-08 09:33] VITALS: BP 158/82; TEMP 98.3; O2SAT 99
== END 2025-06-08 09:35 | disposition home or self-care (01) ==
LOC: M ED 07:06
DX: T45.2X1A Poisoning by vitamins, accidental (unintentional), initial encounter (principal); I10 Essential (primary) hypertension; E78.5 Hyperlipidemia, unspecified; Z79.52 Long term (current) use of systemic steroids; Z79.899 Other long term (current) drug therapy